=== PATIENT | female | born 1965 | race Caucasian/White ===

== ENCOUNTER → 2016-03-04 | Outpatient (CLI) | payer OTHER ==
[2016-03-04 07:59] LABS: AUTOMATED NEUTROPHIL # 4.3 TH/MM3 (1.8-7.7); BASOPHIL # 0.1 TH/MM3 (0-0.2); EOSINOPHIL # 0.1 TH/MM3 (0-0.4); HEMATOCRIT 40.4 % (35.0-46.0); HEMO FLAGS DIFF FINAL; LYMPH % 22.2 % (9.0-44.0); LYMPHOCYTE # 1.5 TH/MM3 (1.0-4.8); MEAN CELL VOLUME 81.3 FL (80.0-100.0); MEAN CORPUSCULAR HEMOGLOBIN 27.2 PG (27.0-34.0); MEAN CORPUSCULAR HGB CONC 33.4 % (32.0-36.0); MONO % 9.3 % (0.0-8.0); NEUT % 65.5 % (16.0-70.0); PLATELET COUNT 319 TH/MM3 (150-450); RED BLOOD COUNT 4.97 MIL/MM3 (4.00-5.30); RED CELL DISTRIBUTION WIDTH 14.2 % (11.6-17.2); WHITE BLOOD COUNT 6.6 TH/MM3 (4.0-11.0)
[2016-03-04 08:01] LABS: BLOOD, URINE SMALL (NEG); GLUCOSE,URINE NEG (NEG); KETONE, URINE NEG (NEG); MUCUS URINE FEW /lpf (OCC); NITRITE,URINE NEG (NEG); PH, URINE 5.5 (5.0-8.5); SQUAMOUS EPITHELIAL CELL URINE 1 /hpf (0-5); URINE COLOR YELLOW (YELLW/STRAW)
[2016-03-04 08:41] LABS: ALKALINE PHOSPHATASE 85 U/L (45-117); ALT (GPT) 18 U/L (10-53); ANION GAP 8 MEQ/L (5-15); AST (GOT) 13 U/L (15-37); BICARBONATE 26.5 MEQ/L (21.0-32.0); BLOOD UREA NITROGEN 12 MG/DL (7-18); CHLORIDE 105 MEQ/L (98-107); FREE T3 3.19 PG/ML (2.18-3.98); FREE T4 1.07 NG/DL (0.76-1.46); GLOMERULAR FILTRATION RATE 94 ML/MIN (>89); GLUCOSE,FASTING 101 MG/DL (74-99); HDL CHOLESTEROL 70.1 MG/DL (40.0-60.0); LDL CHOLESTEROL 95 MG/DL (0-99); POTASSIUM 4.2 MEQ/L (3.5-5.1); SODIUM (NA) 139 MEQ/L (136-145); TOTAL BILIRUBIN ADULT 0.5 MG/DL (0.2-1.0)
[2016-03-04 17:17] LABS: HEMOGLOBIN A1a 0.9 %; HEMOGLOBIN Ao 84.9 %; HEMOGLOBIN F 0.9 %; HEMOGLOBIN LA1C 2.1 %
[2016-03-05 23:54] LABS: THYROGLOB ABS LESS THAN 1 IU/mL (< OR = 1)
== END ==
LOC: CLAB 07:31
PROVIDERS: ATTEND Family Medicine
DX: E66.9 Obesity, unspecified (principal); Z00.00 Encounter for general adult medical examination without abnormal findings
CPT/HCPCS: 36415; 80053; 80061; 81001; 82306; 82607; 83036; 84439; 84443; 84481; 85025; 86376; 86800; 87086

== ENCOUNTER → 2016-05-27 | Day surgery (SDC) | payer OTHER ==
[~2016-05-27] MED LIST: ACETAMINOPHEN/HYDROcodone 325 MG/5 MG TAB ONE; BUPIVACAINE/EPINEPHRINE 0.5% PF 30 ML VIAL ONE; KETOROLAC TROMETHAMINE 30 MG/ML (IVP) VIAL IV PUSH ONE; LACTATED RINGER'S 1000 ML INJ 1,000 ML ONE; MIDAZOLAM HCL 2 MG/2 ML VIAL ONE; MORPHINE SULFATE 4 MG/ML INJ ONE; ONDANSETRON HCL 4 MG/2 ML VIAL IV PUSH ONE; PROPOFOL 200 MG/20 ML AMP IV ONE; ceFAZolin INJ 1,000 MG VIAL ONE
--- NOTE | 2016-05-29 13:19 | MP ---
cc: SHERRY MCKEON DATE OF SURGERY: 05/27/2016 PREOPERATIVE DIAGNOSIS: Right knee medial meniscus tear. POSTOPERATIVE DIAGNOSIS: Right knee medial meniscus tear. OPERATION: Right knee arthroscopic partial medial meniscectomy. SURGEON Dr. Sherry Mckeon ANESTHESIA General. ESTIMATED BLOOD LOSS: Less than 10 cc. TOURNIQUET TIME: Zero. COMPLICATIONS: None. JUSTIFICATION: The patient is 50-year-old female who injured the right knee. She has had persistent pain, in regards to her condition failed conservative treatment. Clinical exam as well as MRI confirmed the above-named findings. The patient counseled as to the risks, benefits and alternatives of named surgical procedure. She did wish to proceed with surgery. PROCEDURE IN DETAIL: A written consent obtained. The patient identified by name, taken to the operating room, placed supine on operating room table, general anesthesia was administered as well as 1 gram of IV Ancef. Right thigh carefully placed in well-padded leg byrd right lower extremity prepped and draped using Isopropyl alcohol, Hibiclens solution and DuraPrep solution. After a time out was performed a medial lateral parapatellar arthroscope portal was established patellofemoral joint did reveal mild grade 2 chondromalacia changes. The medial compartment revealed radial tear of knife edger horn medial meniscus with unstable cartilage meniscal tissue upon probing. An arthroscopic basket forceps as well as the shaver was introduced in the medial compartment for partial meniscectomy meniscal rim was probed and noted to be stable after meniscectomy. 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 The intercondylar notch showed the anterior posterior cruciate ligaments to be intact. The lateral compartment was free of meniscal pathology and chondromalacia. At the conclusion of cervical procedure, 30 cc of 0.50% Marcaine with epinephrine was injected in the knee joint. The arthroscopic portal was closed 3-0 Prolene suture. Sterile dressing applied. The patient on procedure well. No intraoperative complications were noted. MD ZAFAR Lares/ismael /3:27 PM /1:08 PM
== END | disposition home or self-care (01) ==
LOC: ESDC 13:27
PROVIDERS: ATTEND Orthopaedic Surgery Sports Medicine
DX: S83.241A Other tear of medial meniscus, current injury, right knee, initial encounter (principal)
CPT/HCPCS: 01400; 29881; J0690; J1885; J2250; J2270; J2405; J3010; J7120

== ENCOUNTER → 2016-08-11 | Outpatient (CLI) | payer OTHER ==
[2016-08-11 08:23] LABS: BASOPHIL % 0.8 % (0.0-2.0); EOSINOPHIL # 0.2 TH/MM3 (0-0.4); EOSINOPHIL % 2.6 % (0.0-4.0); HEMATOCRIT 40.5 % (35.0-46.0); HEMO FLAGS DIFF FINAL; LYMPH % 26.7 % (9.0-44.0); LYMPHOCYTE # 1.7 TH/MM3 (1.0-4.8); MEAN CELL VOLUME 82.5 FL (80.0-100.0); MEAN CORPUSCULAR HGB CONC 33.9 % (32.0-36.0); MONO % 6.4 % (0.0-8.0); NEUT % 63.5 % (16.0-70.0); PLATELET COUNT 284 TH/MM3 (150-450); RED BLOOD COUNT 4.91 MIL/MM3 (4.00-5.30); RED CELL DISTRIBUTION WIDTH 14.2 % (11.6-17.2); WHITE BLOOD COUNT 6.3 TH/MM3 (4.0-11.0)
[2016-08-11 08:37] LABS: BLOOD, URINE NEG (NEG); GLUCOSE,URINE NEG (NEG); KETONE, URINE NEG (NEG); NITRITE,URINE NEG (NEG); PH, URINE 6.5 (5.0-8.5); SQUAMOUS EPITHELIAL CELL URINE <1 /hpf (0-5); URINE COLOR YELLOW (YELLW/STRAW)
[2016-08-11 08:38] LABS: BLOOD UREA NITROGEN 13 MG/DL (7-18); GLUCOSE,FASTING 91 MG/DL (74-99); LDH SERUM 188 U/L (84-246)
[2016-08-11 09:09] LABS: FREE T4 0.94 NG/DL (0.76-1.46)
[2016-08-11 09:14] LABS: HDL CHOLESTEROL 74.3 MG/DL (40.0-60.0); TOTAL BILIRUBIN ADULT 0.5 MG/DL (0.2-1.0)
[2016-08-11 09:15] LABS: CREATINE KINASE 44 U/L (26-192); GLOMERULAR FILTRATION RATE 92 ML/MIN (>89); URIC ACID 4.8 MG/DL (2.6-6.0)
[2016-08-11 09:16] LABS: ALKALINE PHOSPHATASE 77 U/L (45-117); ALT (GPT) 21 U/L (10-53); ANION GAP 7 MEQ/L (5-15); AST (GOT) 15 U/L (15-37); BICARBONATE 28.2 MEQ/L (21.0-32.0); CHLORIDE 105 MEQ/L (98-107); SODIUM (NA) 140 MEQ/L (136-145)
[2016-08-11 09:17] LABS: LDL CHOLESTEROL 96 MG/DL (0-99)
[2016-08-11 16:54] LABS: HEMOGLOBIN A1b 0.8 %; HEMOGLOBIN Ao 85.8 %; HEMOGLOBIN F 0.9 %; HEMOGLOBIN LA1C 1.9 %; HEMOGLOBIN P3 3.8 %
[2016-08-14 23:53] LABS: THYROGLOB ABS LESS THAN 1 IU/mL (< OR = 1)
== END ==
LOC: CLAB 07:44
PROVIDERS: ATTEND Family Medicine
DX: E78.4 Other hyperlipidemia (principal); R73.09 Other abnormal glucose; N95.9 Unspecified menopausal and perimenopausal disorder; M54.5 Low back pain; R31.9 Hematuria, unspecified; E66.9 Obesity, unspecified
CPT/HCPCS: 36415; 80053; 80061; 81001; 82306; 82550; 82607; 82746; 83036; 83615; 84439; 84443; 84480; 84550; 85025; 86376; 86800; 87086

== ENCOUNTER 2017-02-01 12:04 | Emergency (ER) | payer OTHER ==
[~2017-02-01] VITALS: Ht 160 cm; Wt 100.0 kg
[2017-02-01 12:08] VITALS: PULSE 117; RESP 18; TEMP 100.2; O2SAT 96
--- NOTE | 2017-02-01 12:38 | PD ---
HPI Chief Complaint: Cold / Flu Symptoms Time Seen by Provider: 12:30 Travel History International Travel<30 days: No Contact w/Intl Traveler<30days: No Traveled to known affect area: No History of Present Illness HPI 51-year-old female presents versus [facility] for evaluation of fever, body aches, nausea, worsening over last 3 days. Patient states she has no energy. She denies any significant pain. She denies any cough or chest congestion. Reports lower abdominal cramping and urinary urgency. Denies diarrhea or vomiting. She has no symptoms to report. PFSH Past Medical History ?: Not Social History Tobacco Use: No Allergies-Medications (Allergen,Severity, Reaction): Coded Allergies: No Known Allergies (Unverified , 02/01/17) Reported Meds & Prescriptions Reported Meds & Active Scripts Active Zofran Odt (Ondansetron Odt) 4 Mg Tab 4 Mg SL Q6HR PRN Reported Trokendi Xr (Topiramate) 25 Mg Cap 25 Mg PO DAILY Lomaira (Phentermine HCl) 8 Mg Tab 37.5 Mg PO DAILY Tramadol (Tramadol HCl) 50 Mg Tab 50 Mg PO Q12HR PRN Vitamin D2 (Ergocalciferol) 2,000 Unit Tab 50,000 Units PO DAILY Review of Systems Except as stated in HPI: all other systems reviewed are Neg Physical Exam Narrative GENERAL: Well-nourished female patient, in no acute distress. SKIN: Focused skin assessment warm/dry. HEAD: Atraumatic. Normocephalic. EYES: Pupils equal and round. No scleral icterus. No injection or drainage. ENT: No nasal bleeding or discharge. Mucous membranes pink and moist. Pharynx without erythema or edema. No exudate. NECK: Trachea midline. No JVD. No lymphadenopathy. CARDIOVASCULAR: Tachycardic rate and rhythm. No murmur appreciated. RESPIRATORY: No accessory muscle use. Clear to auscultation. Breath sounds equal bilaterally. GASTROINTESTINAL: Abdomen soft, nondistended. Suprapubic tenderness to deep palpation.. Hepatic and splenic margins not palpable. MUSCULOSKELETAL: No obvious deformities. No clubbing. No cyanosis. No edema. NEUROLOGICAL: Awake and alert. No obvious cranial nerve deficits. Motor grossly within normal limits. Normal speech. PSYCHIATRIC: Appropriate mood and affect; insight and judgment normal. Data Data Last Documented VS Vital Signs Date Time Temp Pulse Resp B/P (MAP) Pulse Ox O2 Delivery O2 Flow Rate FiO2 02/01/17 16:10 02/01/17 15:16 99.6 82 16 97 Room Air Orders Orders Basic Metabolic Panel (Bmp) (02/01/17 12:42) Complete Blood Count With Diff (02/01/17 12:42) Urinalysis - C+S If Indicated (02/01/17 12:42) Iv Access Insert/Monitor (02/01/17 12:42) Ecg Monitoring (02/01/17 12:42) Oximetry (02/01/17 12:42) Ondansetron Inj (Zofran Inj) (02/01/17 12:45) Sodium Chlor 0.9% 1000 Ml Inj (Ns 1000 M (02/01/17 12:42) Sodium Chloride 0.9% Flush (Ns Flush) (02/01/17 12:45) Ketorolac Inj (Toradol Inj) (02/01/17 12:45) Ed Urine Pregnancytest Poc (02/01/17 12:42) Influenzae A/B Antigen (02/01/17 12:42) Acetaminophen (Tylenol) (02/01/17 13:45) Sodium Chlor 0.9% 1000 Ml Inj (Ns 1000 M (02/01/17 14:15) Ed Discharge Order (02/01/17 15:17) Labs Laboratory Tests Test 02/01/17 13:00 White Blood Count 9.0 TH/MM3 Red Blood Count 5.38 MIL/MM3 Hemoglobin 15.0 GM/DL Hematocrit 43.9 % Mean Corpuscular Volume 81.6 FL Mean Corpuscular Hemoglobin 27.8 PG Mean Corpuscular Hemoglobin Concent 34.1 % Red Cell Distribution Width 13.1 % Platelet Count 232 TH/MM3 Mean Platelet Volume 8.0 FL Neutrophils (%) (Auto) 77.4 % Lymphocytes (%) (Auto) 10.0 % Monocytes (%) (Auto) 11.7 % Eosinophils (%) (Auto) 0.0 % Basophils (%) (Auto) 0.9 % Neutrophils # (Auto) 7.0 TH/MM3 Lymphocytes # (Auto) 0.9 TH/MM3 Monocytes # (Auto) 1.1 TH/MM3 Eosinophils # (Auto) 0.0 TH/MM3 Basophils # (Auto) 0.1 TH/MM3 CBC Comment DIFF FINAL Differential Comment Urine Color YELLOW Urine Turbidity CLEAR Urine pH 5.5 Urine Specific [place] 1.023 Urine Protein TRACE mg/dL Urine Glucose (UA) NEG mg/dL Urine Ketones NEG mg/dL Urine Occult Blood LARGE Urine Nitrite NEG Urine Bilirubin NEG Urine Urobilinogen 2.0 MG/DL Urine Leukocyte Esterase NEG Urine RBC 6 /hpf Urine WBC 4 /hpf Urine Squamous Epithelial Cells 3 /hpf Urine Mucus FEW /lpf Microscopic Urinalysis Comment CULT NOT INDICATED Blood Urea Nitrogen 18 MG/DL Creatinine 0.81 MG/DL Random Glucose 104 MG/DL Calcium Level 8.9 MG/DL Sodium Level 135 MEQ/L Potassium Level 4.0 MEQ/L Chloride Level 104 MEQ/L Carbon Dioxide Level 24.2 MEQ/L Anion Gap 7 MEQ/L Estimat Glomerular Filtration Rate 74 ML/MIN MDM Medical Decision Making Medical Screen Exam Complete: Yes Emergency Medical Condition: Yes Medical Record Reviewed: Yes Differential Diagnosis Influence of versus viral syndrome versus UTI versus pneumonia Narrative Course 51-year-old female presents emergency department for evaluation. Patient appears without distress. Lab work is without acute concern. Influence is negative. Patient was given IV fluids, Toradol and, Tylenol. Fever has reduced and she is reporting improvement in her symptoms. She is counseled on care and agrees to return immediately with any acute worsening symptoms. Diagnosis Primary Impression: Flu-like symptoms Additional Impressions: Fever Qualified Codes: R50.9 - Fever, unspecified Nausea Referrals: Primary Care Physician Patient Instructions: General Instructions, Influenza (ED) Additional Instructions: Maintain adequate oral hydration Alternate Tylenol and ibuprofen as directed on the package to maintain fever control Advance diet as tolerated Follow-up with her primary care provider Return immediately to the emergency department with any acute worsening symptoms Med/Other Pt SpecificInfo: Prescription(s) given Scripts Ondansetron Odt (Zofran Odt) 4 Mg Tab 4 MG SL Q6HR Y for Nausea/Vomiting, #10 TAB 0 Refills Prov: Sylvia Garcia 02/01/17 Disposition: 01 DISCHARGE HOME Condition: Stable Sylvia Garcia Feb 01, 2017 12:38
[2017-02-01] MEDS ORDERED: SODIUM CHLOR 0.9% 1000 ML INJ 1,000 ML IV SCH (12:42)
[2017-02-01] MEDS ORDERED: ONDANSETRON HCL 4 MG/2 ML VIAL IVP ONE (12:45)
[2017-02-01] MEDS ORDERED: KETOROLAC TROMETHAMINE 30 MG/ML (IVP) VIAL IVP ONE (12:45)
[2017-02-01] MEDS ORDERED: SODIUM CHLORIDE 0.9% FLUSH 10 ML FLUSH IV FLUSH PRN (12:45)
[2017-02-01] MEDS ORDERED: PHEN-556 PO (13:10)
[2017-02-01] MEDS ORDERED: TOPI1CAP25 PO (13:10)
[2017-02-01] MEDS ORDERED: TRAM50TA PO (13:10)
[2017-02-01] MEDS ORDERED: ERGO2000 PO (13:10)
[2017-02-01 13:18] VITALS: BP 124/75; PULSE 95; RESP 18; TEMP 102.4; O2SAT 95
[2017-02-01 13:36] LABS: BASOPHIL # 0.1 TH/MM3 (0-0.2); BASOPHIL % 0.9 % (0.0-2.0); HEMATOCRIT 43.9 % (35.0-46.0); HEMO FLAGS DIFF FINAL; LYMPHOCYTE # 0.9 TH/MM3 (1.0-4.8); MEAN CELL VOLUME 81.6 FL (80.0-100.0); MEAN CORPUSCULAR HEMOGLOBIN 27.8 PG (27.0-34.0); MEAN CORPUSCULAR HGB CONC 34.1 % (32.0-36.0); MONO % 11.7 % (0.0-8.0); NEUT % 77.4 % (16.0-70.0); PLATELET COUNT 232 TH/MM3 (150-450); RED BLOOD COUNT 5.38 MIL/MM3 (4.00-5.30); RED CELL DISTRIBUTION WIDTH 13.1 % (11.6-17.2)
[2017-02-01 13:44] LABS: BLOOD, URINE LARGE (NEG); COMMENT (UR) CULT NOT INDICATED; CULTURE IF INDICATED CULT NOT INDICATED; GLUCOSE,URINE NEG (NEG); KETONE, URINE NEG (NEG); MUCUS URINE FEW /lpf (OCC); NITRITE,URINE NEG (NEG); PH, URINE 5.5 (5.0-8.5); SQUAMOUS EPITHELIAL CELL URINE 3 /hpf (0-5); URINE COLOR YELLOW (YELLW/STRAW)
[2017-02-01] MEDS ORDERED: ACETAMINOPHEN 500 MG CPLT PO ONE (13:45)
[2017-02-01 13:53] LABS: BICARBONATE 24.2 MEQ/L (21.0-32.0)
[2017-02-01] MEDS ORDERED: SODIUM CHLOR 0.9% 1000 ML INJ 1,000 ML IV ONE (14:15)
[2017-02-01 15:16] VITALS: BP 119/70; PULSE 82; RESP 16; TEMP 99.6; O2SAT 97
[2017-02-01] MEDS ORDERED: ZOFR4TAB3 SL (15:20)
== END 2017-02-01 16:29 | disposition home or self-care (01) ==
LOC: NEPE 12:04
DX: R50.9 Fever, unspecified (principal); R11.0 Nausea; R39.15 Urgency of urination
CPT/HCPCS: 80048; 81001; 84703; 85025; 87804; 96361; 96374; 96375; 99284; J1885; J2405; J7030

== ENCOUNTER → 2017-06-30 | Outpatient (CLI) | payer OTHER ==
[~2017-06-30] MED LIST changes: -ACETAMINOPHEN/HYDROcodone 325 MG/5 MG TAB ONE; -BUPIVACAINE/EPINEPHRINE 0.5% PF 30 ML VIAL ONE; +ERGO2000 PO; -KETOROLAC TROMETHAMINE 30 MG/ML (IVP) VIAL IV PUSH ONE; -LACTATED RINGER'S 1000 ML INJ 1,000 ML ONE; -MIDAZOLAM HCL 2 MG/2 ML VIAL ONE; -MORPHINE SULFATE 4 MG/ML INJ ONE; -ONDANSETRON HCL 4 MG/2 ML VIAL IV PUSH ONE; +PHEN-556 PO; -PROPOFOL 200 MG/20 ML AMP IV ONE; +TOPI1CAP25 PO; +TRAM50TA PO; +ZOFR4TAB3 SL; -ceFAZolin INJ 1,000 MG VIAL ONE
[2017-06-30 07:50] LABS: AUTOMATED NEUTROPHIL # 3.9 TH/MM3 (1.8-7.7); BASOPHIL % 0.7 % (0.0-2.0); EOSINOPHIL # 0.2 TH/MM3 (0-0.4); EOSINOPHIL % 2.5 % (0.0-4.0); HEMATOCRIT 43.1 % (35.0-46.0); HEMOGLOBIN 14.2 GM/DL (11.6-15.3); LYMPHOCYTE # 1.7 TH/MM3 (1.0-4.8); MEAN CELL VOLUME 83.2 FL (80.0-100.0); MEAN CORPUSCULAR HEMOGLOBIN 27.4 PG (27.0-34.0); MEAN PLATELET VOLUME 7.5 FL (7.0-11.0); MONOCYTE # 0.4 TH/MM3 (0-0.9); NEUT % 62.8 % (16.0-70.0); PLATELET COUNT 328 TH/MM3 (150-450); RED BLOOD COUNT 5.18 MIL/MM3 (4.00-5.30); RED CELL DISTRIBUTION WIDTH 13.7 % (11.6-17.2); WHITE BLOOD COUNT 6.2 TH/MM3 (4.0-11.0)
[2017-06-30 07:54] LABS: BILIRUBIN, URINE NEG (NEG); BLOOD, URINE NEG (NEG); GLUCOSE,URINE NEG (NEG); KETONE, URINE NEG (NEG); MUCUS URINE FEW /lpf (OCC); NITRITE,URINE NEG (NEG); SQUAMOUS EPITHELIAL CELL URINE 1 /hpf (0-5); URINE COLOR YELLOW (YELLW/STRAW); URINE LEUKOCYTE ESTERASE NEG (NEG)
[2017-06-30 08:14] LABS: ALBUMIN 3.7 GM/DL (3.4-5.0); AST (GOT) 17 U/L (15-37); BICARBONATE 28.5 MEQ/L (21.0-32.0); BLOOD UREA NITROGEN 17 MG/DL (7-18); CALCIUM 9.1 MG/DL (8.5-10.1); CHLORIDE 105 MEQ/L (98-107); CHOLESTEROL 180 MG/DL (120-200); CREATININE 0.63 MG/DL (0.50-1.00); GLOMERULAR FILTRATION RATE 99 ML/MIN (>89); GLUCOSE,FASTING 102 MG/DL (74-99); SODIUM (NA) 140 MEQ/L (136-145); TRIGLYCERIDES 60 MG/DL (42-150)
[2017-06-30 08:41] LABS: ALKALINE PHOSPHATASE 76 U/L (45-117); ALT (GPT) 22 U/L (10-53); CHOLESTEROL/ HDL RATIO 2.37 RATIO; FOLATE 18.3 NG/ML (3.1-17.5); FREE T4 0.85 NG/DL (0.76-1.46); HDL CHOLESTEROL 75.9 MG/DL (40.0-60.0); LDL CHOLESTEROL 92 MG/DL (0-99); TOTAL BILIRUBIN ADULT 0.6 MG/DL (0.2-1.0); TOTAL PROTEIN 7.6 GM/DL (6.4-8.2)
[2017-06-30 16:58] LABS: HEMOGLOBIN A1C 5.5 % (4.3-6.0)
== END ==
LOC: CLAB 07:04
PROVIDERS: ATTEND Family Medicine
DX: E78.4 Other hyperlipidemia (principal); R73.09 Other abnormal glucose; N95.9 Unspecified menopausal and perimenopausal disorder; M54.5 Low back pain; R31.9 Hematuria, unspecified
CPT/HCPCS: 36415; 80053; 80061; 81001; 82306; 82550; 82607; 82746; 83036; 83615; 84439; 84443; 84480; 84550; 85025; 86141; 87086; 88112